=== PATIENT | female | born 1930 | race Caucasian/White ===

== ENCOUNTER 2017-03-21 16:00 | Emergency (ER) | payer MEDICARE, BC ==
--- NOTE | ~2017-03-21 | CT101 ---
[facility] A Service of [facility] RADIOLOGY TEXT RESULTS PATIENT: JOSE MENA LOCATION: [facility] : 32 UNIT #: [id number] AGE: [address]: Annabelle Dailey MD SEX: F ORDER DR: [id number] [facility] [address] [place], [place] [address] [id number] E MR#: [id number] #: [id number] NAME: JOSE MENA : 1930 SEX: F STUDY DATE/TIME: 03/21/2017 18:09 UNIT: [facility] ROOM: STUDY DESCRIPTION: CT Maxillofacial Area Wo Cont Attending Physician: Annabelle Dailey M.D. Ordering Physician: Hugo Mandujano M.D. Primary Care Physician: Clarice Mayes M.D. MEDICAL IMAGING REPORT This report is preliminary unless electronic signature is present EXAM CT facial bones without contrast HISTORY Fell and hit face today. Face pain and swelling. TECHNIQUE This CT exam was performed with one or more of the following radiation dose reduction techniques: automatic control, adjustment of mA and/or kV according to patient size, and iterative reconstruction. FINDINGS CT facial bones without contrast demonstrates nondisplaced left anterior nasal bone fracture, with overlying soft tissue gas and soft tissue swelling suggesting direct trauma and soft tissue injury. [id number] nasal septal deviation to the left. Mild mucosal thickening in the maxillary sinuses bilaterally. No sinus opacification or air-fluid level. No additional fracture. IMPRESSION 1. Nondisplaced left anterior nasal bone fracture with overlying soft tissue swelling and soft tissue gas suggesting direct trauma. 2. No additional fracture. 3. Ftmq-ii-dzikango left nasal septal deviation. 4. Mild mucosal thickening in the maxillary sinuses. Dictated by... Prateek Cnoti M.D. THIS IS AN ELECTRONICALLY VERIFIED REPORT Prateek Conti M.D. at 03/22/2017 10:33 PM DFL/rnr [facility] A Service of [facility] RADIOLOGY TEXT RESULTS PATIENT: JOSE MENA LOCATION: [facility] : 32 UNIT #: [id number] AGE: [address]: Annabelle Dailey MD SEX: F ORDER DR: TD: 03/22/2017 05:27 JOB #: [id number] MEDICAL IMAGING REPORT Page 1 of 1 COPY
--- NOTE | ~2017-03-21 | CT71 ---
[facility] A Service of [facility] RADIOLOGY TEXT RESULTS PATIENT: JOSE MENA LOCATION: [facility] : 32 UNIT #: [id number] AGE: [address]: Annabelle Dailey MD SEX: F ORDER DR: [id number] [facility] [address] [place], [place] [address] [id number] E MR#: [id number] Acc #: [id number] NAME: JOSE MENA : 1930 SEX: F STUDY DATE/TIME: 03/21/2017 18:07 UNIT: [facility] ROOM: STUDY DESCRIPTION: CT Head Wo Contrast Attending Physician: Annabelle Dailey M.D. Ordering Physician: Hugo Mandujano M.D. Primary Care Physician: Clarice Mayes M.D. MEDICAL IMAGING REPORT This report is preliminary unless electronic signature is present EXAM CT head 03/21/2017 HISTORY Fell and hit head and face on concrete. Nose bloody and swollen. Happened 03/21/2017 forehead nasal injury [address] head performed skull base through vertex without intravenous contrast. This CT exam was performed with one or more of the following radiation dose reduction techniques: automatic control, adjustment of mA and/or kV according to patient size, and iterative reconstruction. Comparison: No prior CTs head for comparison. Please see today's dedicated CT of the facial bones for discussion of facial region. The brainstem is unremarkable. Cerebellum and cerebral hemispheres show overall preservation of gilman matter - white matter differentiation. No intracranial hemorrhage. Periventricular and deep white matter tract hypodensities bilaterally most consistent with sequelae of chronic microvascular ischemia. Study degraded by motion artifact. Midline structures are nondisplaced. No acute-appearing basal ganglia abnormality. Ventricles, cisterns and sulci show mild generalized enlargement consistent with mild generalized atrophy. No intra or extraaxial mass effect. Relatively prominent CSF density along the anterior superior left middle cranial fossa may represent a volume averaging through CSF space or arachnoid cyst. No mass effect on adjacent structures. Visualized intraorbital soft tissues unremarkable. There are cavernous carotid arterial calcifications. No calvarial fracture. Soft tissue swelling suggested in minimally visualized nasal bridge region. See dedicated CT of facial bones. Mucosal thickening ethmoid air cells. Some mucosal thickening in inferior right mastoid air cells. IMPRESSION 1. No acute abnormality is seen in the brain. [facility]. [facility] A Service of [facility] RADIOLOGY TEXT RESULTS PATIENT: JOSE MENA LOCATION: [facility] : 32 UNIT #: [id number] AGE: [address]: Annabelle Dailey MD SEX: F ORDER DR: 2. Mild generalized atrophy. 3. Periventricular deep white matter tract probable sequelae of chronic microvascular ischemia. 4. Prominent CSF density anterior-superior left middle cranial fossa favored to be either volume averaging through CSF space or arachnoid cyst. No mass effect on adjacent structures. 5. Vascular calcifications. 6. No calvarial fracture. Please see CT facial bones for discussion of facial bones. 7. Soft tissue swelling and partially visualized nasal bridge region. 8. Mucosal thickening ethmoid air cells and some inferior right mastoid air cells. Dictated by... Logan Penny M.D. THIS IS AN ELECTRONICALLY VERIFIED REPORT Logan Penny M.D. at 03/23/2017 11:31 AM LOLA/jostin TD: 03/22/2017 05:02 JOB #: [id number] MEDICAL IMAGING REPORT Page 1 of 1 COPY
--- NOTE | ~2017-03-21 | CR142 ---
[facility] A Service of [facility] RADIOLOGY TEXT RESULTS PATIENT: JOSE MENA LOCATION: [facility] : 32 UNIT #: [id number] AGE: [address]: Annabelle Dailey MD SEX: F ORDER DR: [id number] [facility] [address] [place], [place] [address] [id number] E MR#: [id number] Acc #: [id number] NAME: JOSE MENA : 1930 SEX: F STUDY DATE/TIME: 03/21/2017 17:23 UNIT: [facility] ROOM: STUDY DESCRIPTION: CR Hand Min 3 Views Rt Attending Physician: Annabelle Dailey M.D. Ordering Physician: Hugo Mandujano M.D. Primary Care Physician: Clarice Mayes M.D. MEDICAL IMAGING REPORT This report is preliminary unless electronic signature is present EXAM Right hand series HISTORY Hand swelling posteriorly swelling in fingers today. Fall. FINDINGS AP lateral and oblique radiographs of the right hand are presented. No traumatic fracture or malalignment. Generalized narrowing of the interphalangeal joint spaces. Triangular fibrocartilage ligament calcifications. Prominent soft tissue swelling dorsal aspect of the hand and wrist most pronounced along the metacarpal area. Correlate with exam and mechanism of injury. There is no soft tissue defect, subcutaneous air or foreign body. Dictated by... Logan Penny M.D. THIS IS AN ELECTRONICALLY VERIFIED REPORT Logan Penny M.D. at 03/23/2017 11:31 AM LOLA/jostin TD: 03/22/2017 03:27 JOB #: [id number] MEDICAL IMAGING REPORT Page 1 of 1 COPY
[~2017-03-21 16:00] MED LIST: ACETAMINOPHEN PO; ASPIRIN PO; CARVEDILOL6.25 MG PO; COREG6.25 MG PO; COZAAR100 MG PO; DIGOXIN125 MCG PO; DIOVAN PO; FISH OIL 1,0001 EAC1 PO; FISH OIL300 MG PO; FISH OIL500 MG PO; K-DUR20 ME1 PO; K-LOR20 MEQ PO; LASIX20 MG PO; LEVAQUIN 500 MG PO; LEVOTHYROXINE50 MCG PO; LOSARTAN POTAS100 MG PO; METFORMIN HCL500 M3 PO; METHOCARBAMOL500 MG PO; MUCINEX 600 MG PO; PHENERGAN PO; PRADAXA150 MG PO; SYNTHROID PO; SYNTHROID25 MCG PO; TAMIFLU 75 MG PO; TYLENOL EXTRA500 M1 PO; ULTRAM PO
== END 2017-03-21 20:25 | disposition home or self-care (01) ==
LOC: CED 16:00
DX: S02.2XXA Fracture of nasal bones, initial encounter for closed fracture (principal); S01.21XA Laceration without foreign body of nose, initial encounter; I10 Essential (primary) hypertension; E11.9 Type 2 diabetes mellitus without complications; Z88.8 Allergy status to other drugs, medicaments and biological substances; W01.0XXA Fall on same level from slipping, tripping and stumbling without subsequent striking against object, initial encounter; Y92.009 Unspecified place in unspecified non-institutional (private) residence as the place of occurrence of the external cause
CPT/HCPCS: 12011; 70450; 70486; 73130; 99284